=== PATIENT | female | born 1965 | race African-American/Black ===

== ENCOUNTER 2019-11-11 07:14 | Emergency (ER) | payer BC, OTHER ==
[2019-11-11 07:27] VITALS: TEMP 98.8; BMI 30.7
--- NOTE | 2019-11-11 08:00 | PDOC ---
History of Present Illness - General Chief Complaint: Respiratory Stated Complaint: HEADACHE/FEVER Time Seen by Provider: 11/11/19 07:38 Past History - Past Medical History Allergies/Adverse Reactions: Allergies Allergy/AdvReac Type Severity Reaction Status Date / Time levofloxacin [From Levaquin] Allergy Verified 11/12/19 07:37 Penicillins Allergy Verified 11/12/19 07:37 Home Medications: Ambulatory Orders Amlodipine Besylate [Norvasc -] 5 mg PO DAILY 11/11/19 Montelukast Sodium [Singulair] 10 mg PO DAILY 11/11/19 Cyclobenzaprine HCl [Flexeril 10 mg] 10 mg PO HS #14 tablet 11/12/19 Naproxen 500 mg PO BID #28 tablet 11/12/19 COPD: No HTN: Yes - Psycho Social/Smoking Cessation Hx Smoking History: Never smoked *Physical Exam - Vital Signs Last Vital Signs Temp Pulse Resp BP Pulse Ox 98.8 F 78 18 140/87 98 11/11/19 07:23 11/11/19 07:23 11/11/19 07:23 11/11/19 07:23 11/11/19 07:23 ED Treatment Course - LABORATORY CBC & Chemistry Diagram: 11/11/19 08:12 11/11/19 08:12 Medical Decision Making - Medical Decision Making 11/11/19 09:16 HPI: 54yo F hx HTN (previously on amlodipine; self-discontinued 2 weeks ago because felt like made her dizzy), sinus infections, and clinical (no test done) dx from flu on Tuesday on Tamiflu (4 days completed) presents from home c/o gradual onset diffuse constant aching/stabbing headache x5 days not improved by tylenol or motrin (last took yesterday) associated with pulsating in L ear, L-sided neck pain, fever Tmax 103 (Tuesday), intermittent lightheadedness, decreased PO intake, and NB emesis x4 only after taking tamiflu (no nausea). Denies nausea, vomiting when not taking pill, rhinorrhea, postnasal drip, sinus pressure, cough , diarrhea, sore throat, abdominal pain, chest pain, SOB, dysuria, rash, travel , outdoors activity, recent illness, sick contacts, falls or head injury, numbness/tingling, weakness. PCP - [place] ROS: Constitutional: Positive for fever. Negative for chills, fatigue, diaphoresis. HENT: Positive for L ear pulsating pain. Negative for sore throat, rhinorrhea, congestion. Eyes: Negative for visual disturbance. Respiratory: Negative for shortness of breath, cough, and wheezing. Cardiovascular: Negative for chest pain, palpitations, and leg swelling. Gastrointestinal: Positive for vomiting, decreased PO intake. Negative for abdominal pain, blood in stool, constipation, diarrhea, nausea. Genitourinary: Negative for dysuria, flank pain, and hematuria. Musculoskeletal: Positive for L-sided neck pain. Negative for myalgias, back pain. Skin: Negative for rash. Neurological: Positive for light-headedness, headache. Negative for vertigo, syncope, weakness, numbness. Psychiatric/Behavioral: Negative for behavioral problems and confusion. PE: Gen: Alert, NAD, comfortable-appearing. HEENT: PERRL, EOMI, MMM, NCAT. No conjunctival pallor. Sclera are non-icteric. Oropharynx is clear. TMs normal. No sinus tenderness. Neck supple. +L-sideded paraspinal tenderness. CV: Regular rate and rhythm. No murmurs, rubs, or gallops. PULM: No resp distress. CTAB, no wheezes, rales, or rhonchi. ABD: soft, NT/ND, no rebound tenderness or guarding, no CVA tenderness. BACK: No TTP of c/t/l-spine. No step-offs or deformities. MSK: No bony deformities. 2+ pulses in all extremities. NEURO: AAOx3. PERRL. CN 2-12 intact. 5/5 strength in all extremities. Sensation to light touch intact in all extremities. No pronator drift. No dysmetria. No dysdiadochokinesia. No abnormal nystagmus. No skew deviation. Normal gait. EXTREMITIES: No cyanosis. No clubbing. No edema. No calf tenderness. PSYCH: Normal mood and thought pattern. SKIN: Warm and dry. Normal capillary refill. No rashes. No jaundice. MDM: 54yo F hx HTN (previously on amlodipine; self-discontinued 2 weeks ago because felt like made her dizzy), sinus infections, and clinical (no test done) dx from flu on Tuesday on Tamiflu (4 days completed) presents from home with gradual onset diffuse constant aching/stabbing headache x5 days not improved by tylenol or motrin (last took yesterday) associated with pulsating in L ear, L- sided neck pain, fever Tmax 103 (Tuesday), intermittent lightheadedness, decreased PO intake, and NB emesis x4 only after taking tamiflu (no nausea). Hemodynamically stable, afebrile, neurologically intact, no meningeal signs, TMs normal. Ddx: flu, URI, sinusitis, tension headache, migraine headache, metabolic derangement, anemia. L-sided neck pain and reproducibility consistent with muscle strain/spasm. Presentation and exam not concerning for meningitis, sinusitis, SAH/ICH, carotid artery dissection. -CTH -CBC,CMP,Flu -IVF -Pending w/u and reassessment, consider CTA head/neck and/or LP -Pain management:Tylenol,Reglan,Benadryl,Toradol -Dispo: pending workup and reassessment, likely d/c home 11/11/19 12:27 CTH reviewed: no acute pathology Labs/flu reviewed: no concerning findings Pain improved, tolerated PO, states ready to go home, safe for discharge Will discharge home with Neuro and ENT f/u. Return precautions given. Pt understands all discharge instructions and all questions were answered. Discharge - Discharge Information Problems reviewed: Yes Clinical Impression/Diagnosis: Headache Qualifiers: Headache type: unspecified Headache chronicity pattern: acute headache Intractability: intractable Qualified Code(s): R51 - Headache Condition: Improved Disposition: HOME - Admission No - Follow up/Referral Referrals: ON STAFF,NOT [Primary Care Provider] - Santy Sanchez MD [Staff Physician] - Gera Blair MD [Non Staff, Medical] - Escobar Li [Non Staff, Medical] - Nickolas Doan MD [Staff Physician] - Geoff Mota MD [Staff Physician] - Parveen Singh DO [Staff Physician] - Justice Johnson MD [Staff Physician] - - Patient Discharge Instructions Patient Printed Discharge Instructions: DI for Headache Additional Instructions: You have been seen in the Emergency Department for your headache, which improved with pain medications and hydration. At this time it's most important to stay hydrated by drinking lots of water and control your pain with ibuprofen and tylenol as directed on the bottles. We have given you referrals to multiple ENT (Ear, Nose, Throat) and Neurologist (brain) doctors for further evaluation of your headache, sinus infections, and ear pain. Call one of the offices tomorrow to make a follow-up appointment. Also follow-up with your primary care doctor within 1 week. Do not restart your Amlodipine until evaluated by your primary care doctor - your care is not complete until evaluated by your primary care doctor. Return to the Emergency Department immediately for any new or concerning symptoms including numbness, vision changes, feeling like the room's spinning, passing out, or difficulty walking. - Post Discharge Activity
--- NOTE | 2019-11-11 08:43 | PDOC ---
*Physical Exam - Vital Signs Last Vital Signs Temp Pulse Resp BP Pulse Ox 98.8 F 78 18 140/87 98 11/11/19 07:23 11/11/19 07:23 11/11/19 07:23 11/11/19 07:23 11/11/19 07:23 ED Treatment Course - LABORATORY CBC & Chemistry Diagram: 11/11/19 08:12 11/11/19 08:12 Medical Decision Making - Medical Decision Making 11/11/19 08:39 Patient seen as pre-attending with Dr. Nice (PGY-1) and Dr. Toro ( Attending) 54 y/o female here with 3 day h/o headache. Headache is global throbbing with no visual changes. Stopped Amlodipine two weeks previous because it was making her dizzy. Had been taking Amlodipine for one year w/o an AEs until recently. [facility] [place] on Tuesday for headache and fever (Tmax 103 ) and discharged with Tamiflu (does not recall being tested for Influenza). Alternating Tylenol and Motrin for fever. States she vomits when she takes the medication. Will evaluate for hypertensive bleed and test for Influenza. Low clinical supsicion for meningitis - no neck stiffness, afebrile here 11/11/19 10:[address] negative Influenza negative 11/11/19 12:42 Symptomatically improved s/p Tylenol + Toradol Clinical suspicion for MCCLAIN 2/2 to viral URI, will d/c home, instruct patient to see PMD before initiating re-start of anti-hypertensive regimen. Discharge - Discharge Information Problems reviewed: Yes Clinical Impression/Diagnosis: Headache Condition: Improved Disposition: HOME - Follow up/Referral Referrals: Santy Sanchez MD [Staff Physician] - Geoff Mota MD [Staff Physician] - Gera Blair MD [Non Staff, Medical] - Escobar Li [Non Staff, Medical] - Parveen Singh DO [Staff Physician] - Justice Johnson MD [Staff Physician] - ON STAFF,NOT [Primary Care Provider] - Nickolas Doan MD [Staff Physician] - - Patient Discharge Instructions Patient Printed Discharge Instructions: DI for Headache Additional Instructions: You have been seen in the Emergency Department for your headache, which improved with pain medications and hydration. At this time it's most important to stay hydrated by drinking lots of water and control your pain with ibuprofen and tylenol as directed on the bottles. We have given you referrals to multiple ENT (Ear, Nose, Throat) and Neurologist (brain) doctors for further evaluation of your headache, sinus infections, and ear pain. Call one of the offices tomorrow to make a follow-up appointment. Also follow-up with your primary care doctor within 1 week. Do not restart your Amlodipine until evaluated by your primary care doctor - your care is not complete until evaluated by your primary care doctor. Return to the Emergency Department immediately for any new or concerning symptoms including numbness, vision changes, feeling like the room's spinning, passing out, or difficulty walking. - Post Discharge Activity
[2019-11-11] MEDS ORDERED: SODIUM CHLORIDE 0.9% 500 ML INFUS.BAG IV ONE (08:44)
[2019-11-11] MEDS ORDERED: METOCLOPRAMIDE HCL INJECTION 10 MG/2 ML VIAL IVPUSH ONE (08:44)
[2019-11-11] MEDS ORDERED: ACETAMINOPHEN 1000 MG/100 ML VIAL (NON FORMULARY) IVPB ONE (08:44)
[2019-11-11] MEDS ORDERED: METOCLOPRAMIDE HCL INJECTION 10 MG/2 ML VIAL ONE (09:09)
[2019-11-11] MEDS ORDERED: ACETAMINOPHEN INJECTION 100 ML IVPB ONE (09:09)
--- NOTE | 2019-11-11 09:35 | PDOC ---
Attending Attestation - Resident Resident Name: Loida Nice - ED Attending Attestation I have performed the following: I have examined & evaluated the patient, The case was reviewed & discussed with the resident, I agree w/resident's findings & plan, Exceptions are as noted - HPI HPI: 11/11/19 09:27 54yo female presents for eval of 4 days of frontal headache. States headache feels like a tight band around her head. Pt states paraspinal neck pain. States fevers. Saw her Doc in [place], [place] on Tuesday and dx with the flu (wasn't tested ) and was placed on tamiflu - caused her n/v. States she hasn't been able to tolerate po intake since tuesday given tamiflu effect. Pt states she is vomiting up apple sauce and water. Pt denies diarrhea. No dysuria. No rhinorrhea, cough, congestion, sore throat. Pt states frontal headache. Pt denies cp/sob. No abd pain. C/o nausea. No fever this morning - last tylenol/motrin was last night. No dysuria. No other complaints. No rashes. No recent travel. - Physicial Exam PE: 11/11/19 09:29 gen: aaox3, uncomfortable heent: PERRL, EOMI, MMM, posterior pharynx clear, no erythema or exudates neck: supple, paraspinal ttp heart: +s1s2 reg lungs: cta b/l abd: soft, nt/nd +bs ext: no c/c/e neuro: cn ii - xii grossly intact, no focal deficits, ambulatory in the ER with a steady gait - Medical Decision Making 11/11/19 09:35 a/p: 54yo female with hunter and recent dx of the flu -will send labs, n/v from tamiflu -will hydrate -neuro intact -will send labs, head ct -will give reglan, tylenol -pt is afebrile -will send flu swab, if neg will recommend dc tamiflu -will monitor and reassess 11/11/19 10:[address] neg 11/11/19 10:06 cbc reviewed no elevated wbc 11/11/19 10:26 pt states hunter improved receiving meds now will continue to monitor and reassess 11/11/19 10:42 labs reviewed without acute findings 11/11/19 10:48 pt feeling much better hunter 12/20 from 06/21 will add toradol 11/11/19 10:49 no meningeal signs 11/11/19 10:58 pt eating and drinking a this time 11/11/19 12:25 pt states feeling much better hunter improved pt has tolerated po state she wants to go home discussed tylenol and motrin at home answered all questions stable for dc to home pt sitting up on the side of the bed in nad
[2019-11-11 09:48] LABS: BASO % 0.5 % (0-2.0); EOS % 0.6 % (0-4.5); HEMATOCRIT 37.8 % (32.4-45.2); HEMOGLOBIN 12.8 GM/dL (10.7-15.3); LYMPH % 29.2 % (8-40); MCH 29.9 pg (25.7-33.7); MCHC 33.9 g/dl (32.0-36.0); MEAN CELL VOLUME 88.4 fl (80-96); MEAN PLT VOLUME 8.4 fl (7.5-11.1); MONO % 10.1 % (3.8-10.2); NEUT % 59.6 % (42.8-82.8); PLATELET COUNT 261 K/MM3 (134-434); RBC 4.28 M/mm3 (3.60-5.2); RDW 13.5 % (11.6-15.6); WHITE BLOOD COUNT 6.4 K/mm3 (4.0-10.0)
[2019-11-11 10:31] LABS: BILIRUBIN,TOTAL 0.6 mg/dL (0.2-1); CALCIUM 9.6 mg/dL (8.5-10.1); CREATININE 0.7 mg/dL (0.55-1.3); POTASSIUM 3.7 mmol/L (3.5-5.1)
[2019-11-11] MEDS ORDERED: KETOROLAC TROMETHAMINE 15 MG/ML VIAL IVPUSH ONE (10:42)
[2019-11-11] MEDS ORDERED: KETOROLAC TROMETHAMINE 15 MG/ML VIAL ONE (11:34)
[2019-11-11 12:48] VITALS: BP 139/80; PULSE 80
== END 2019-11-11 12:48 | disposition home or self-care (01) ==
LOC: JER 07:14
PROC: 3E033GC Introduction of Other Therapeutic Substance into Peripheral Vein, Percutaneous Approach (ICD-10-PCS; principal; 2019-11-11)
PROC: 3E0333Z Introduction of Anti-inflammatory into Peripheral Vein, Percutaneous Approach (ICD-10-PCS; 2019-11-11)
PROC: 3E033NZ Introduction of Analgesics, Hypnotics, Sedatives into Peripheral Vein, Percutaneous Approach (ICD-10-PCS; 2019-11-11)
DX: R51 Headache (principal)
CPT/HCPCS: 36415; 70450-TC; 80053; 85025; 87804; 99285-25; J0131

== ENCOUNTER 2019-11-12 07:27 | Emergency (ER) | payer OTHER ==
[2019-11-12 07:41] VITALS: BP 141/86; PULSE 77; BMI 31.6
[2019-11-12] MEDS ORDERED: METOCLOPRAMIDE HCL INJECTION 10 MG/2 ML VIAL IVPB ONE (08:00)
[2019-11-12] MEDS ORDERED: KETOROLAC TROMETHAMINE 30 MG/1 ML VIAL IVPUSH ONE (08:01)
--- NOTE | 2019-11-12 08:06 | PDOC ---
History of Present Illness - General History Source: Patient - History of Present Illness Timing/Duration: reports: other <Dawson Warren - Last Filed: 11/12/19 08:26> <Caitlin,Bandar - Last Filed: 11/15/19 10:04> - General Chief Complaint: Headache Stated Complaint: REVISIT Time Seen by Provider: 11/12/19 07:54 Past History - Past Medical History COPD: No HTN: Yes - Psycho Social/Smoking Cessation Hx Smoking History: Never smoked Information on smoking cessation initiated: No Hx Alcohol Use: No Drug/Substance Use Hx: No <Dawson Warren - Last Filed: 11/12/19 08:26> <CaitlinBandar - Last Filed: 11/15/19 10:04> - Past Medical History Allergies/Adverse Reactions: Allergies Allergy/AdvReac Type Severity Reaction Status Date / Time levofloxacin [From Levaquin] Allergy Verified 11/12/19 07:37 Penicillins Allergy Verified 11/12/19 07:37 Home Medications: Ambulatory Orders Amlodipine Besylate [Norvasc -] 5 mg PO DAILY 11/11/19 Montelukast Sodium [Singulair] 10 mg PO DAILY 11/11/19 Cyclobenzaprine HCl [Flexeril 10 mg] 10 mg PO HS #14 tablet 11/12/19 Naproxen 500 mg PO BID #28 tablet 11/12/19 Review of Systems - Review of Systems Constitutional: No: Chills, Fever HEENTM: No: Blurred Vision Neurological: No: Headache, Numbness, Tingling, Weakness, Dizziness <Dawson Warren - Last Filed: 11/12/19 08:26> *Physical Exam - Vital Signs Last Vital Signs Temp Pulse Resp BP Pulse Ox 77 18 141/86 98 11/12/19 07:37 11/12/19 07:37 11/12/19 07:37 11/12/19 07:37 - Physical Exam General Appearance: Yes: Appropriately Dressed. No: Apparent Distress HEENT: positive: Normal ENT Inspection, Normal Voice, TMs Normal, Pharynx Normal, Other (no ttp over L TMJ, no clicking) Respiratory/Chest: negative: Respiratory Distress Integumentary: positive: Dry, Warm Neurologic: positive: linoleum tile layer II-XII NML intact, Fully Oriented, Alert, Normal Mood/Affect, Motor Strength 5/5 <Dawson Warren - Last Filed: 11/12/19 08:26> - Vital Signs Last Vital Signs Temp Pulse Resp BP Pulse Ox 77 18 141/86 98 11/12/19 07:37 11/12/19 07:37 11/12/19 07:37 11/12/19 07:37 <Bandar Tucker - Last Filed: 11/15/19 10:04> ED Treatment Course - Medications Given in the ED: ED Medications Discontinued Medications Generic Name Dose Route Start Last Admin Trade Name Melanie PRN Reason Stop Dose Admin Ketorolac Tromethamine 30 mg 11/12/19 08:01 11/12/19 08:14 Toradol Injection - IVPUSH 11/12/19 08:02 30 mg ONCE ONE Administration Metoclopramide HCl 10 mg 11/12/19 08:00 11/12/19 08:14 Reglan Injection - IVPB 11/12/19 08:01 10 mg ONCE ONE Administration <Bandar Tucker - Last Filed: 11/15/19 10:04> Medical Decision Making - Medical Decision Making 11/12/19 08:01 54-year-old female, history of hypertension,here for second ED visit for headache. Patient was seen here yesterday and had negative labs and head CT. States headache started 4 days ago, located to frontal aspect and radiates to L ear. No exacerbating factors. No dizziness, nausea, vomiting or visual changes. Taking Motrin and Tylenol with no relief per patient. No history of similar headache see exam New onset MCCLAIN Neg w/u in ED yesterday including head CT Possible TMJ syndrome given radiation to L ear -Pain control in ED -Will give neuro f/u upon discharge 11/12/19 08:31 Reports improvement with meds. Will dc with pain control and give neuro follow- up <Dawson Warren - Last Filed: 11/12/19 08:26> - Medical Decision Making 11/15/19 10:03 The patient was seen and evaluated in conjunction with JARRETT Warren under my direct supervision, ancillary studies were reviewed. I agree with the plan as outlined by JARRETT Warren . <Bandar Tucker - Last Filed: 11/15/19 10:04> Discharge - Discharge Information Problems reviewed: Yes <Dawson Warren - Last Filed: 11/12/19 08:26> <Bandar Tucker - Last Filed: 11/15/19 10:04> - Discharge Information Clinical Impression/Diagnosis: Headache Qualifiers: Headache type: unspecified Headache chronicity pattern: acute headache Intractability: intractable Qualified Code(s): R51 - Headache Condition: Improved Disposition: HOME - Additional Discharge Information Prescriptions: Cyclobenzaprine HCl [Flexeril 10 mg] 10 mg PO HS #14 tablet Naproxen 500 mg PO BID #28 tablet - Follow up/Referral Referrals: Zacarias Blankenship MD [Staff Physician] - - Patient Discharge Instructions Additional Instructions: The cause of your headache is unclear at this time Take medications as directed and follow-up with Dr. Blankenship of neurology - Post Discharge Activity Work/Back to School Note: Back to Work
[2019-11-12] MEDS ORDERED: METOCLOPRAMIDE HCL INJECTION 10 MG/2 ML VIAL ONE (08:07)
[2019-11-12] MEDS ORDERED: KETOROLAC TROMETHAMINE 30 MG/1 ML VIAL ONE (08:07)
== END 2019-11-12 08:39 | disposition home or self-care (01) ==
LOC: JER 07:27
PROC: 3E033GC Introduction of Other Therapeutic Substance into Peripheral Vein, Percutaneous Approach (ICD-10-PCS; principal; 2019-11-12)
PROC: 3E0333Z Introduction of Anti-inflammatory into Peripheral Vein, Percutaneous Approach (ICD-10-PCS; 2019-11-12)
DX: R51 Headache (principal); I10 Essential (primary) hypertension
CPT/HCPCS: 99284-25

== ENCOUNTER 2021-11-24 13:50 | Emergency (ER) | payer BC, OTHER ==
[2021-11-24 14:07] VITALS: BP 143/91; PULSE 91; TEMP 99; BMI 31.6
[2021-11-24] MEDS ORDERED: KETOROLAC TROMETHAMINE 30 MG/1 ML VIAL IM ONE (15:30)
[2021-11-24] MEDS ORDERED: KETOROLAC TROMETHAMINE 30 MG/1 ML VIAL ONE (15:38)
== END 2021-11-24 16:39 | disposition home or self-care (01) ==
LOC: JERFT 13:50
PROC: 3E0233Z Introduction of Anti-inflammatory into Muscle, Percutaneous Approach (ICD-10-PCS; principal; 2021-11-24)
DX: G56.01 Carpal tunnel syndrome, right upper limb (principal)
CPT/HCPCS: 99284-25

== ENCOUNTER 2021-11-25 15:36 | Emergency (ER) | payer BC ==
[2021-11-25 15:44] VITALS: BP 165/91; PULSE 93; TEMP 97.9; BMI 31.6
[2021-11-25] MEDS ORDERED: KETOROLAC TROMETHAMINE 60 MG/2 ML VIAL IM ONE (16:32)
[2021-11-25] MEDS ORDERED: KETOROLAC TROMETHAMINE 30 MG/1 ML VIAL ONE (16:37)
== END 2021-11-25 16:51 | disposition home or self-care (01) ==
LOC: JERFT 15:36 → JER 15:36 → JERFT 16:51
PROC: 3E0233Z Introduction of Anti-inflammatory into Muscle, Percutaneous Approach (ICD-10-PCS; principal; 2021-11-25)
DX: M25.531 Pain in right wrist (principal)
CPT/HCPCS: 96372; 99284-25

== ENCOUNTER 2022-12-01 21:17 | Emergency (ER) | payer BC ==
[2022-12-01 21:23] VITALS: BP 173/95; PULSE 81; RESP 18; TEMP 98; BMI 31.5
[2022-12-01] MEDS ORDERED: DEXAMETHASONE SOD PHOSPHATE 10 MG/1 ML VIAL PO ONE (22:00)
[2022-12-01] MEDS ORDERED: DEXAMETHASONE SOD PHOSPHATE 10 MG/1 ML VIAL ONE (22:01)
== END 2022-12-01 22:06 | disposition home or self-care (01) ==
LOC: JERFT 21:17
DX: J02.9 Acute pharyngitis, unspecified (principal)
CPT/HCPCS: 99283-25; J1100

== ENCOUNTER 2023-02-02 06:43 | Emergency (ER) | payer BC ==
[2023-02-02 06:53] VITALS: BP 154/95; PULSE 83; RESP 18; TEMP 98.2; BMI 31.6
[2023-02-02 09:46] LABS: THROAT:GRP A STREP NOT DETECTED (NOTDETECTED)
== END 2023-02-02 08:32 | disposition home or self-care (01) ==
LOC: JER 06:43
DX: R09.81 Nasal congestion (principal); R07.0 Pain in throat; R13.10 Dysphagia, unspecified; R09.82 Postnasal drip; J01.00 Acute maxillary sinusitis, unspecified; Z20.822 Contact with and (suspected) exposure to COVID-19
CPT/HCPCS: 0241U-QW; 87651; 99283-25

== ENCOUNTER 2025-05-14 16:46 | Emergency (ER) | payer BC ==
[2025-05-14 16:50] VITALS: TEMP 98.1; BMI 31.6
[2025-05-14] MEDS ORDERED: ACETAMINOPHEN INJECTION 100 ML ONE (18:07)
[2025-05-14] MEDS: ACETAMINOPHEN 1000 MG/100 ML BAG IVPB ONE (18:21)
[2025-05-14 18:44] LABS: ABSOLUTE IMMATURE GRANULOCYTES 0.02 x10^3/uL (0.0-0.031); BASOPHILS # 0.03 x10^3/uL (0.01-0.08); EOSINOPHIL % 1.8 % (0.7-5.8); EOSINOPHILS # 0.14 x10^3/uL (0.04-0.36); MCHC 31.5 g/dl (32.2-35.5); MEAN CELL VOLUME 90.8 fl (79.4-94.8); MEAN PLT VOLUME 11.0 fl (9.4-12.3); MONOCYTE # 0.42 x10^3/uL (0.24-0.86); MONOCYTE % 5.5 % (4.7-12.5); RDW 13.3 % (12.4-16.4)
[2025-05-14 20:26] LABS: GLUCOSE,RANDOM 80.0 mg/dL (74-106)
[2025-05-14 20:27] LABS: TOT PROT 7.8 g/dl (6.4-8.2)
[2025-05-14 20:28] LABS: CO2 26.0 mmol/L (21-32)
[2025-05-14 20:30] LABS: ALK PHOS 121.0 U/L (40-150)
[2025-05-14 20:32] LABS: SGOT/AST 22.0 U/L (5-34); SGPT/ALT 19.0 U/L (0-55)
[2025-05-14 20:33] LABS: CREATININE 0.77 mg/dL (0.55-1.3)
[2025-05-14 20:53] LABS: HIV INTERPRETATION NEGATIVE (NEGATIVE)
[2025-05-14 20:57] LABS: HCV DIAGNOSTIC IN-HOUSE W/RFLX NON-REACTIVE (NONREACTIVE)
[2025-05-14] MEDS ORDERED: KETOROLAC TROMETHAMINE 15 MG/ML VIAL ONE (21:09)
[2025-05-14] MEDS: KETOROLAC TROMETHAMINE 15 MG/ML VIAL IVPUSH ONE (21:28)
[2025-05-14 23:53] VITALS: BP 137/88; PULSE 70; RESP 17
== END 2025-05-14 22:40 | disposition home or self-care (01) ==
LOC: JER 16:46
PROC: 3E033NZ Introduction of Analgesics, Hypnotics, Sedatives into Peripheral Vein, Percutaneous Approach (ICD-10-PCS; principal; 2025-05-14)
PROC: 3E0333Z Introduction of Anti-inflammatory into Peripheral Vein, Percutaneous Approach (ICD-10-PCS; 2025-05-14)
DX: R07.89 Other chest pain (principal); R06.02 Shortness of breath; H93.11 Tinnitus, right ear
CPT/HCPCS: 36415; 71046-TC-FY; 80053; 83735; 84439; 84443; 84484; 85025; 85379; 86803; 87389; 93005; 93010; 99285-25